=== PATIENT | male | born 1980 | race Caucasian/White ===

== ENCOUNTER 2016-11-06 15:34 | Emergency (ER) | payer OTHER ==
[2016-11-06] MEDS ORDERED: ZOLOFT (15:37)
[2016-11-06] MEDS ORDERED: SUBOXONE 12 MG1 EACH PO (15:37)
== END 2016-11-06 16:24 | disposition home or self-care (01) ==
LOC: SED 15:34
DX: L02.31 Cutaneous abscess of buttock (principal); Z79.899 Other long term (current) drug therapy
CPT/HCPCS: 99283

== ENCOUNTER 2016-11-07 19:23 | Emergency (ER) | payer OTHER ==
[~2016-11-07] VITALS: Ht 175.3 cm; Wt 122.5 kg
[~2016-11-07 19:23] MED LIST: SUBOXONE 12 MG1 EACH PO; ZOLOFT
== END 2016-11-07 23:21 | disposition home or self-care (01) ==
LOC: SED 19:23
DX: K61.1 Rectal abscess (principal); F17.200 Nicotine dependence, unspecified, uncomplicated; Z79.2 Long term (current) use of antibiotics
CPT/HCPCS: 10060; 87070; 87077; 87186; 87205; 96372; 99283; J1885